=== PATIENT | female | born 1935 | race Caucasian/White ===

== ENCOUNTER 2016-06-20 | Outpatient (CLI) | payer MEDICARE, OTHER | END 2016-06-20 20:39 | disposition critical access hospital (66) | CPT/HCPCS: A0425; A0429 ==

== ENCOUNTER 2016-06-20 20:57 | Emergency (ER) | payer MEDICARE, OTHER ==
[2016-06-20] MEDS ORDERED: SODIUM CHLORIDE 0.9% 500 ML IV ONE (21:08)
[2016-06-20] MEDS ORDERED: TETANUS/DIPHTHERIA/PERTUSSIS 0.5 ML SYRINGE IM ONE ×2 (21:08→22:45)
[2016-06-20] MEDS ORDERED: ACETAMINOPHEN 325 MG TABLET PO STA (22:36)
[2016-06-20] MEDS ORDERED: ACETAMINOPHEN 325 MG TABLET PO ONE (22:45)
[2016-06-20] MEDS ORDERED: POTASSIUM BICARB 25 MEQ TABLET PO STA (22:48)
[2016-06-20] MEDS ORDERED: POTASSIUM BICARB 25 MEQ TABLET PO ONE (22:51)
== END 2016-06-20 23:28 | disposition home or self-care (01) ==
DX: S09.12XA Laceration of muscle and tendon of head, initial encounter (principal); S01.81XA Laceration without foreign body of other part of head, initial encounter; S01.511A Laceration without foreign body of lip, initial encounter; W01.198A Fall on same level from slipping, tripping and stumbling with subsequent striking against other object, initial encounter; Y92.009 Unspecified place in unspecified non-institutional (private) residence as the place of occurrence of the external cause; Z79.01 Long term (current) use of anticoagulants; Z23 Encounter for immunization
CPT/HCPCS: 12053; 36415; 70450; 70486; 80053; 83690; 85025; 85610; 90471; 90715; 99284; A9270